=== PATIENT | female | born 1980 | race Asian ===

== ENCOUNTER → 2019-04-09 | Outpatient (CLI) | payer MEDICAID | END | disposition home or self-care (01) | LOC: PUC 18:24 | DX: R07.0 Pain in throat (principal) | CPT/HCPCS: 87430 ==

== ENCOUNTER 2020-12-19 16:56 | Emergency (ER) | payer MEDICAID, OTHER ==
[~2020-12-19] VITALS: Ht 154.9 cm; Wt 61.8 kg
[2020-12-19 17:03] VITALS: BP 131/78
[2020-12-19 18:01] LABS: BASOPHILS % (AUTO) 0.4 % (0.0-2.0); EOSINOPHILS % (AUTO) 1.9 % (1.0-6.0); HEMATOCRIT 33.5 % (36-46); HEMOGLOBIN 11.2 g/dL (12.0-16.0); LYMPHOCYTES % (AUTO) 27.4 % (22.0-44.0); MEAN CORPUSCULAR HEMOGLOBIN 28.8 pg (26.0-34.0); MEAN CORPUSCULAR HGB CONC 33.3 G/dL (31.0-37.0); MEAN CORPUSCULAR VOLUME 86 fL (80-100); MONOCYTES # (AUTO) 0.5 K/uL (0.1-1.0); MONOCYTES % (AUTO) 6.9 % (2.0-9.0); NEUTROPHILS # (AUTO) 4.6 K/uL (1.8-7.7); NEUTROPHILS % (AUTO) 63.4 % (40.0-70.0); PLATELET COUNT (AUTO) 329 K/uL (150-450); RED BLOOD CELL COUNT(AUTO) 3.89 MIL/uL (4.00-5.20); RED CELL DISTRIBUTION WIDTH 12.1 % (11.5-14.5)
[2020-12-19 18:12] LABS: ANION GAP 5 mmol/L (8-16); CALCIUM, TOTAL 8.3 mg/dL (8.8-10.5); CARBON DIOXIDE 29 mmol/L (22-29); CHLORIDE 105 mmol/L (98-107); CREATININE 0.72 mg/dL (0.60-1.30); GLOMERULAR FILTR. RATE CALC > 60 mL/min (>60); GLUCOSE,RANDOM 154 mg/dL (70-110); POTASSIUM 3.7 mmol/L (3.5-5.1); SODIUM SERUM 139 mmol/L (136-145); UREA NITROGEN, BLOOD 8 mg/dL (7-18)
[2020-12-19 18:14] LABS: % IRON SATURATION 16.3 % (22-44); IRON, SERUM 61 mcg/dL (50-175); TOTAL IRON BINDING CAPACITY 374 mcg/dL (250-450)
[2020-12-19 18:17] LABS: ALANINE AMINOTRANSFERASE 19 U/L (12-78); ALBUMIN 3.6 g/dL (3.4-5.0); ALKALINE PHOSPHATASE 66 U/L (46-116); ASPARTATE AMINOTRANSFERASE 11 U/L (15-37); BILIRUBIN,TOTAL 0.2 mg/dL (0.1-1.0)
[2020-12-19 18:37] LABS: TOTAL PROTEIN, SERUM 7.6 g/dL (6.4-8.2)
== END 2020-12-19 19:03 | disposition home or self-care (01) ==
LOC: EMS 17:02
DX: N93.9 Abnormal uterine and vaginal bleeding, unspecified (principal)
CPT/HCPCS: 76856; 80053; 83540; 83550; 84703; 85025; 99284

== ENCOUNTER 2023-01-06 00:41 | Emergency (ER) | payer OTHER, MEDICAID ==
[~2023-01-06] VITALS: Ht 152.4 cm; Wt 60.0 kg
[2023-01-06 00:55] VITALS: TEMP 98
[2023-01-06 02:25] VITALS: BP 129/75; PULSE 90; RESP 16
== END 2023-01-06 02:57 | disposition home or self-care (01) ==
LOC: EMS 00:42
DX: T65.91XA Toxic effect of unspecified substance, accidental (unintentional), initial encounter (principal); X58.XXXA Exposure to other specified factors, initial encounter
CPT/HCPCS: 99281; Z7502